=== PATIENT | male | born 1995 | race Caucasian/White ===

== ENCOUNTER 2016-11-08 21:34 | Emergency (ER) | payer BC ==
[~2016-11-08] VITALS: Ht 172.7 cm; Wt 68.0 kg
[~2016-11-08 21:34] MED LIST: CETI10CA; MONT10TA22
[2016-11-08 21:35] VITALS: BP 124/46; PULSE 125; RESP 20; TEMP 99.8; O2SAT 100
--- NOTE | 2016-11-08 22:13 | NUR ---
Patient to ER bed 2 to gown for evaluation. Side rails up. Report given to RICCO FLETCHER.
--- NOTE | 2016-11-08 22:20 | NUR ---
Pt presents to ED with c/o couhging, fever, flue-symptoms x1 day. pt stated that he took ibuprofen at home. Skin dry, intact. A&Ox4, denies SOb or chestpain, denies N/V/D. Will continue to monitor
--- NOTE | 2016-11-08 22:55 | NUR ---
at bedside examining pt
[2016-11-08] MEDS ORDERED: NACL 0.9% 1,000 ML IV ONE (22:59)
[2016-11-08] MEDS ORDERED: KETOROLAC TROMETHAMINE 30 MG VIAL IVP ONE (23:00)
[2016-11-08 23:53] LABS: HEMATOCRIT 42.5 % (36-54); HEMOGLOBIN 14.8 g/dL (14.0-18.0); MEAN CORPUSCULAR HEMOGLOBIN 31 pg (27-31); MEAN CORPUSCULAR HGB CONC 35 % (32-36); MEAN CORPUSCULAR VOLUME 88 fL (79.0-98.0); PLATELET COUNT (AUTO) 204 K/uL (130-430); RED BLOOD CELL COUNT(AUTO) 4.82 MIL/uL (4.2-6.2); RED CELL DISTRIBUTION WIDTH 11.2 % (9.0-15.0); WHITE BLOOD COUNT (AUTO) 19.8 K/uL (4.5-11.0)
[2016-11-08 23:58] LABS: CALCIUM 9.5 mg/dL (8.4-11.0); CREATININE 1.23 mg/dL (0.55-1.30); POTASSIUM 3.8 mmol/L (3.5-5.1)
[2016-11-09 00:26] LABS: BAND % (MANUAL) 5 % (0-6); BASOPHILS % (MANUAL) 0 % (0-2); EOSINOPHILS % (MANUAL) 0 % (0-7); LYMPHOCYTES % (MANUAL) 6 % (20-46); MONOCYTES % (MANUAL) 4 % (0-11)
--- NOTE | 2016-11-09 00:30 | NUR ---
Pt in bed, stated his headache is gone. Mother at bedside
[2016-11-09 01:40] VITALS: BP 122/76; PULSE 95; RESP 18; TEMP 98.3; O2SAT 99
--- NOTE | 2016-11-09 01:40 | NUR ---
Patient given written and verbal discharge instructions and verbalizes understanding. ER MD العلي discussed with patient the results and treatment provided. Patient in stable condition. ID arm band removed. IV catheter removed intact and dressing applied, no active bleeding. No rx given. Patient educated on pain management and to follow up with PMD. Pain Scale 0/10 Opportunity for questions provided and answered.
== END 2016-11-09 01:40 | disposition home or self-care (01) ==
LOC: SED 21:34
DX: J02.9 Acute pharyngitis, unspecified (principal); R52 Pain, unspecified; R11.10 Vomiting, unspecified; J45.909 Unspecified asthma, uncomplicated
CPT/HCPCS: 36415; 80048; 85007; 85027; 86710; 96361; 96374; 99284; J1885; J7030; 85025

== ENCOUNTER 2016-11-10 16:01 | Emergency (ER) | payer BC ==
[~2016-11-10] VITALS: Ht 172.7 cm; Wt 68.0 kg
[2016-11-10 16:34] VITALS: BP 118/68; PULSE 102; RESP 16; TEMP 97; O2SAT 99
--- NOTE | 2016-11-10 17:41 | NUR ---
Pt place in .
--- NOTE | 2016-11-10 18:05 | NUR ---
Patient to waiting room due to critical illness in unit. Patient understands, will be rechecked.
--- NOTE | 2016-11-10 18:30 | NUR ---
Unable to locate patient in the waiting rm.
--- NOTE | 2016-11-10 18:45 | NUR ---
Unable to locate patient. Patient presumed to have eloped.
== END 2016-11-10 18:45 | disposition left against medical advice (07) ==
LOC: SED 16:01
DX: R50.9 Fever, unspecified (principal); J45.909 Unspecified asthma, uncomplicated; Z53.20 Procedure and treatment not carried out because of patient's decision for unspecified reasons
CPT/HCPCS: 99281